=== PATIENT | male | born 1980 | race Caucasian/White ===

== ENCOUNTER 2016-10-12 07:26 | Emergency (ER) | payer SELFPAY ==
[~2016-10-12 07:26] MED LIST: CIPRO500 MG PO; IBUPROFEN600 MG PO; PERCOCET 10-321 EACH PO
== END 2016-10-12 07:42 | disposition expired ==
LOC: ER 07:26
DX: I46.9 Cardiac arrest, cause unspecified (principal); F17.210 Nicotine dependence, cigarettes, uncomplicated
CPT/HCPCS: 92950